=== PATIENT | male | born 1945 | race Caucasian/White ===

== ENCOUNTER 2017-08-29 07:45 | Inpatient (IN) | payer MEDICARE, BC ==
[2017-08-29] MEDS: traMADol 50 MG TAB PO (08:29)
[2017-08-29] MEDS: GABAPENTIN 300 MG CAP PO ×2 (08:29→20:56)
[2017-08-29] MEDS: DEXAMETHASONE 1 MG TAB PO (08:30)
[2017-08-29] MEDS ORDERED: NEOSTIGMINE 3 MG/3 ML SYRINGE (08:47)
[2017-08-29] MEDS ORDERED: GLYCOPYRROLATE 0.4 MG INJ (08:47)
[2017-08-29] MEDS ORDERED: MIDAZOLAM 1 MG/ML 2 ML INJ (08:47)
[2017-08-29] MEDS ORDERED: CEFAZOLIN 1 GM INJ (08:47)
[2017-08-29] MEDS ORDERED: FENTAnyl 50 MCG/ML VIAL ×2 (08:47→10:27)
[2017-08-29] MEDS ORDERED: ONDANSETRON 4 MG INJ (08:47)
[2017-08-29] MEDS ORDERED: DEXAMETHASONE 4 MG/ML 1 ML INJ (08:47)
[2017-08-29] MEDS ORDERED: PROPOFOL 20 ML (08:47)
[2017-08-29] MEDS ORDERED: ROCURONIUM 50 MG INJ (08:47)
[2017-08-29] MEDS ORDERED: ROPIVACAINE 0.5 % 30 ML VIAL (08:48)
[2017-08-29] MEDS ORDERED: FENTAnyl 50 MCG/ML VIAL IV ×3 (10:00)
[2017-08-29] MEDS ORDERED: DIPHENHYDRAMINE 50 MG INJ IV ×2 (10:00→11:30)
[2017-08-29] MEDS ORDERED: LABETALOL HCL 20MG INJ IV (10:00)
[2017-08-29] MEDS ORDERED: EPHEDrine SULFATE 50 MG/5 ML SYG IV (10:00)
[2017-08-29] MEDS ORDERED: ALBUTEROL 0.083% (NEB) 2.5 MG/3 ML AMP HHN (10:00)
[2017-08-29] MEDS ORDERED: ONDANSETRON 4 MG INJ IV ×2 (10:00→11:30)
[2017-08-29] MEDS ORDERED: OXYCODONE/ACETAMINOPHEN (5/325) TAB PO ×3 (10:00→11:30)
[2017-08-29] MEDS ORDERED: MIDAZOLAM 1 MG/ML 2 ML INJ IV (10:00)
[2017-08-29] MEDS ORDERED: IPRATROPIUM (NEB) 0.5 MG/2.5 ML AMP HHN (10:00)
[2017-08-29] MEDS ORDERED: HYDROmorphONE (0.2 MG/ML) 10ML SYG IV ×3 (10:00)
[2017-08-29] MEDS ORDERED: TRIMETHOBENZAMIDE 100 MG/ML VIAL IM (10:00)
[2017-08-29] MEDS ORDERED: MEPERIDINE 25 MG INJ IV (10:00)
[2017-08-29] MEDS: POLYMYXIN/BACITRACIN 1L IRRIG (10:22)
[2017-08-29] MEDS: CA CHLORIDE 10% 10 ML SYRINGE (10:22)
[2017-08-29] MEDS: THROMBIN 5000 UNIT VIAL (10:23)
[2017-08-29] MEDS: BUPIVACAINE 0.5%/EPI (SDV) 30 ML INJ (10:24)
[2017-08-29] MEDS ORDERED: BUPIVACAINE 0.5% (SDV) 30 ML, morphine SULFATE (PF) 8 MG, EPINEPHrine 0.3 MG, KETOROLAC... IRR (11:00)
[2017-08-29] MEDS: TRANEXAMIC ACID 1,000 MG in DEXTROSE 5% 100 ML IVPB (11:00)
[2017-08-29] MEDS: CEFAZOLIN 2 GM/50 ML (PMX) 50 ML IVPB (11:00)
[2017-08-29] MEDS ORDERED: SUGAMMADEX SODIUM 200 MG/2 ML VIAL IV (11:04)
[2017-08-29] MEDS ORDERED: morphine 4 MG/ML VIAL IV (11:30)
[2017-08-29] MEDS ORDERED: morphine 2 MG INJ IV (11:30)
[2017-08-29] MEDS: CEFAZOLIN 1 GM/50 ML (PMX) 50 ML IVPB ×2 (11:30→18:49)
[2017-08-29] MEDS ORDERED: MAGNESIUM HYDROXIDE 30ML CUP PO (11:30)
[2017-08-29] MEDS ORDERED: ZOLPIDEM 5 MG TAB PO (11:30)
[2017-08-29] MEDS ORDERED: ACETAMINOPHEN 500 MG TAB PO (11:30)
[2017-08-29] MEDS: DEXAMETHASONE 2 MG TAB PO ×2 (12:00→18:49)
[2017-08-29] MEDS: TRANEXAMIC ACID 1,000 MG in DEXTROSE 5% 100 ML IV (12:12)
[2017-08-29] MEDS: hydrALAzine 20 MG INJ IV (12:32)
[2017-08-29] MEDS: SENNA/DOCUSATE NA (8.6MG/50MG) TAB PO (20:56)
[2017-08-29] MEDS: MAGNESIUM CHLORIDE (SR) 64 MG TAB PO (21:00)
[2017-08-30] MEDS: MAGNESIUM CHLORIDE (SR) 64 MG TAB PO ×2 (00:07→08:31)
[2017-08-30] MEDS: DEXAMETHASONE 2 MG TAB PO ×2 (00:07→05:58)
[2017-08-30] MEDS: CEFAZOLIN 1 GM/50 ML (PMX) 50 ML IVPB (03:32)
[2017-08-30] MEDS: KETOROLAC 15 MG INJ IV (05:58)
[2017-08-30] MEDS: PANTOPRAZOLE (EC) 40 MG TAB PO (08:30)
[2017-08-30] MEDS: ASPIRIN 81 MG TAB PO (08:30)
[2017-08-30] MEDS: OXYCODONE/ACETAMINOPHEN (5/325) TAB PO (08:31)
[2017-08-30] MEDS: SENNA/DOCUSATE NA (8.6MG/50MG) TAB PO (08:31)
== END 2017-08-30 10:23 | disposition home or self-care (01) | DRG 483 ==
LOC: REC 07:45 → MS1 13:15
PROC: 0RRK0JZ Replacement of Left Shoulder Joint with Synthetic Substitute, Open Approach (ICD-10-PCS; principal; 2017-08-29 09:45)
DX: M19.012 Primary osteoarthritis, left shoulder (principal); I48.2 Chronic atrial fibrillation; K21.9 Gastro-esophageal reflux disease without esophagitis; I25.10 Atherosclerotic heart disease of native coronary artery without angina pectoris; E78.5 Hyperlipidemia, unspecified; Z96.1 Presence of intraocular lens; Z98.42 Cataract extraction status, left eye; Z90.49 Acquired absence of other specified parts of digestive tract
CPT/HCPCS: 73030; 86999; 88304; 88311; 97110; 97166; 97535